=== PATIENT | female | born 1980 | race Caucasian/White ===

== ENCOUNTER 2019-03-23 17:39 | Emergency (ER) | payer BC, OTHER ==
--- NOTE | 2019-03-23 17:56 | NUR ---
SELVIN SENT PT HERE AFTER HER DR MECHE FOR A HEMOGLOBIN OF 6.2. SHE HAS A FIBROID TUMOR SHE REPORTS. THIS RN EXPLAINED WEW ONLY HAVE O NEGATIVE BLOOD HERE BUT WE CAN GET HERE STARTED HERE THEN TRANSFERRED DOWN VIA AMBULANCE TO VIA [facility] IN [place] FOR A BLOOD TRANSFUSION. SHE STATED SHE DID NOT WANT TO TAKE AN AMBULANCE AND THAT SELVIN TOLD HER SHE COULD WAIT UNTIL TOMORROW. THIS RN STATED WE COULD GET HER ADMISSION GOING AND SHE WOULD BYPASS THE ER IN [facility] IF SHE STAYED HERE BUT SHE STILL REFUSED. SHE DID NOT WANT VITALS TAKEN NUT I DID HAVE HER SIGN AN AMA FORM. THE RISKS AND BENEFITS WERE EXPLAINED. THE RISK OF AND THE BENFIT OF RECEIVING BLOOD WERE THROUGLY EXPLAINED AND THE PT STATED SHE AGREED AND WANTED TO SIGN IT AND LEAVE. SHE REPORTED TO THIS RN SHE WAS JUST GONNA WAIT AND GO DOWN EARLY IN THE AM. PT AMBULATED OUT OF ER WITH A FAMILY MEMBER.
--- OUTSIDE RECORDS SUMMARY | 2019-03-30 16:39 | XMS REPORT | Continuity of Care Document ---
Author Organization Unknown Address Unknown Phone Unavailable Allergies Active Description Code Type Severity Reaction Onset Reported/Identified Relationship to Patient Clinical Status Yes No Known Drug Allergies [id number] Drug Allergy Unknown N/A 03/24/2019 Medications There is no data. Problems Date Dx Coded Attending Type Code Diagnosis Diagnosed By 03/25/2019 CLEMENCIA MORAN Ot D58.2 OTHER HEMOGLOBINOPATHIES 03/26/2019 GARY EASTMAN APRN Ot D64 .9 ANEMIA, UNSPECIFIED Procedures There is no data. Results Test Result Range SUREPATH PAP RFX HPV mRNA E6/E7 - 09:45 CLINICAL INFORMATION: NRG LMP: NRG PREV. PAP: NRG PREV. BX: NRG SOURCE: Cervix NRG STATEMENT OF ADEQUACY: NRG INTERPRETATION/RESULT: NRG RN BURN: NRG COMMENT NRG CA 125 - 02/25/19 10:13 CA 125 115 U/mL <35 RED CELLS LEUKO REDUCED AS1 - 03/24/19 1 4:23 RED CELLS LEUKO REDUCED AS1 T RANSFUSED 03/24/19 1713 NRG Blood type T Indirect antibody screen pa flaco - 03/24/19 14:23 WRISTBAND NUMBER [id number] NRG ABO+Rh group OP NRG Blood group antibody screen NEGATIVE NR G Venous blood hemoglobin measurement (mas s/volume) - 03/24/19 19:30 Venous blood hemoglobin measurement (mass/volume) 7.5 g/dL 11.5-16.0 Blood hematocrit (volume fraction) - 07/06 19:30 Blood hematocrit (volume fraction) 26 % 35-52 Encounters ACCT No. Visit Date/Time Discharge Status Pt. Type Provider Facility Loc./Unit Complaint [id number] 03/03/2019 14:00:00 03/03/2019 23:59: 59 CLS Outpatient [facility] [id number] 02/25/2019 09:15:00 Document Registration [id number] 02/23/2019 09:15:00 Document Registration [id number] 03/24/2019 13:10:00 020 19:35:00 DIS Outpatient CLEMENCIA MORAN [facility] LOW HEMOGLOBIN [id number] 03/24/2019 12:28:00 020 12:32:00 DIS Outpatient GARY EASTMAN APRN [facility] ER LOW HEMOGLOBIN [id number] 03/23/2019 17:41:00 18:02:00 DIS Emergency CHANDAN MARTINEZ DO [facility] ER FS HEMOGLOBIN LEVELS LOW
== END 2019-03-23 18:02 | disposition left against medical advice (07) ==
LOC: ER FS 17:41
DX: D64.9 Anemia, unspecified (principal)

== ENCOUNTER 2019-03-24 12:28 | Emergency (ER) | payer BC ==
--- NOTE | 2019-03-24 12:32 | NUR ---
Ivan working with pt to get set up for blood transfusion outpatient.
== END 2019-03-24 12:32 | disposition left against medical advice (07) ==
LOC: ER 12:28 → EDUNIT# 12:28 → ER 12:32
DX: D64.9 Anemia, unspecified (principal)

== ENCOUNTER 2019-03-24 13:10 | Outpatient (CLI) | payer BC ==
[2019-03-24] VITALS (7 sets, daily range): BP systolic 105–129; BP diastolic 60–74
[~2019-03-24] VITALS: Ht 172 cm; Wt 90.1 kg
[2019-03-24] MEDS ORDERED: NS IV 500 ML 500 ML IV ONE (15:30)
[2019-03-24] MEDS ORDERED: NS IV 500 ML 500 ML IV SCH (15:30)
[2019-03-24 19:37] LABS: HEMOGLOBIN 7.5 G/DL (11.5-16.0)
== END 2019-03-24 19:35 | disposition home or self-care (01) ==
LOC: SDC 13:10
PROVIDERS: ATTEND Obstetrics & Gynecology Gynecologic Oncology
DX: D58.2 Other hemoglobinopathies (principal)
CPT/HCPCS: 36415; 36430; 85014; 85018; 86850; 86900; 86901; 86920